=== PATIENT | male | born 1970 | race Caucasian/White ===

== ENCOUNTER 2017-08-05 08:34 | Emergency (ER) | payer MEDICARE, SELFPAY ==
[2017-08-05 08:35] VITALS: BP 150/79; PULSE 100; RESP 18; TEMP 36.3; O2SAT 93; BMI 34.4
--- NOTE | 2017-08-05 08:42 | RAD_ITS ---
STUDY: X-RAY - LEFT HUMERUS REASON FOR EXAM: Male, 46 years old. Pain and bruising following a fall. TECHNIQUE: 4 view(s) of the humerus. COMPARISON: None. FINDINGS: There is an avulsion fracture of the greater tuberosity of the proximal humerus. Nondisplaced transverse fracture through the surgical neck of the humerus with extension to the medial portion as well. There is diffuse soft tissue swelling of the arm. RAD/Humerus min 2 Views IMPRESSION: The multiple fracture of the greater tuberosity of the proximal humerus with a transverse fracture through the surgical neck of the humerus and avulsion of the medial humeral head. Electronically Signed: Delmar Quintana MD at 9:31 EST Tel [phone], Service support ,
--- NOTE | 2017-08-05 08:43 | ED.VISSUMM ---
- ER Visit Summary Date of Service: 08/05/17 Chief Complaint: [Left arm injury] History of Present Illness: The patient is a 46 M [who presents the emergency department after a left arm injury. There was a bread stick in the microwave and it started smoking. He got excited and started to run. He tripped over his own feet and fell on his left shoulder. He has pain and bruising on the inside of his left arm and when he lifts his arm up it hurts. This occurred 4 days ago. He had no other injuries during the fall. He is not on any blood thinners. He has had no previous surgeries or injuries to that arm in the past. No numbness or tingling.] Physical Examination: [] Vitals reviewed Obese Examination of the left upper extremity shows a large amount of ecchymosis on the medial upper arm. There is no focal mass. He is tender in the mid humerus, he has full range of motion at the elbow with no tenderness over the elbow. He has no tenderness over the shoulder or clavicle. He has pain with abduction of the shoulder. There is 2+ radial pulses no sensory deficits Test Results: [] Emergency Department Course and Treatment: [X-rays will be obtained. X-rays show fracture of the greater trochanter the medial humeral head and through the surgical neck. Y view was obtained and shows no dislocation. I spoke with orthopedics who requested a CT scan. CT was unable to be obtained as the patient cannot get in the scanner because of his weight. Axillary views were attempted but were unable to be obtained. They were able to repeat the Y views with better images there does not appear to be a dislocation. This is an injury that occurred 4 days ago. This time he will be placed in a sling and swath and will follow up with orthopedics.] Treatment Plan: [] Disposition: [Discharge] Impression: [Left humerus fracture] This note was generated with [employer] dictation software. It may contain incorrect words, spelling, and punctuation that were not noted in review of the chart prior to signing ED Disposition - Plan for ED Patient: Chief Complaint: Upper Extremity Injury Referrals: Jed Edwards MD [Primary Care Provider] -
--- NOTE | 2017-08-05 08:46 | ED.DCSUM_ITS ---
- ER Visit Summary Date of Service: 08/05/17 Chief Complaint: [Left arm injury] History of Present Illness: The patient is a 46 M [who presents the emergency department after a left arm injury. There was a bread stick in the microwave and it started smoking. He got excited and started to run. He tripped over his own feet and fell on his left shoulder. He has pain and bruising on the inside of his left arm and when he lifts his arm up it hurts. This occurred 4 days ago. He had no other injuries during the fall. He is not on any blood thinners. He has had no previous surgeries or injuries to that arm in the past. No numbness or tingling.] Physical Examination: [] Vitals reviewed Obese Examination of the left upper extremity shows a large amount of ecchymosis on the medial upper arm. There is no focal mass. He is tender in the mid humerus , he has full range of motion at the elbow with no tenderness over the elbow. He has no tenderness over the shoulder or clavicle. He has pain with abduction of the shoulder. There is 2+ radial pulses no sensory deficits Test Results: [] Emergency Department Course and Treatment: [X-rays will be obtained. X-rays show fracture of the greater trochanter the medial humeral head and through the surgical neck. Y view was obtained and shows no dislocation. I spoke with orthopedics who requested a CT scan. CT was unable to be obtained as the patient cannot get in the scanner because of his weight. Axillary views were attempted but were unable to be obtained. They were able to repeat the Y views with better images there does not appear to be a dislocation. This is an injury that occurred 4 days ago. This time he will be placed in a sling and swath and will follow up with orthopedics.] Treatment Plan: [] Disposition: [Discharge] Impression: [Left humerus fracture] This note was generated with [employer] dictation software. It may contain incorrect words, spelling, and punctuation that were not noted in review of the chart prior to signing ED Disposition - Plan for ED Patient: Chief Complaint: Upper Extremity Injury Referrals: Jed Edwards MD [Primary Care Provider] -
--- NOTE | 2017-08-05 10:00 | RAD_ITS ---
STUDY: X-RAY - LEFT SHOULDER REASON FOR EXAM: Male, 46 years old. Pain following a fall. TECHNIQUE: Y view(s) of the shoulder. COMPARISON: None. FINDINGS: Limited study due to the patient's body habitus. There is no evidence of subluxation or dislocation. RAD/Shoulder One View IMPRESSION: No evidence of subluxation or dislocation. Electronically Signed: Delmar Quintana MD at 12:22 EST Tel [phone], Service support ,
--- NOTE | 2017-08-05 13:23 | RAD_ITS ---
STUDY: X-RAY - LEFT SHOULDER REASON FOR EXAM: Male, 46 years old. Proximal humerus fracture following a fall. TECHNIQUE: Y view(s) of the shoulder. COMPARISON: None. FINDINGS: There is no evidence of dislocation. There is evidence of a fracture of the proximal humerus as described on prior examination. RAD/Shoulder One View IMPRESSION: There is no evidence of dislocation. Electronically Signed: Delmar Quintana MD at 14:40 EST Tel [phone], Service support ,
--- NOTE | 2017-08-05 14:29 | ED.DEP ---
ED Disposition - Plan for ED Patient: Chief Complaint: Upper Extremity Injury Instructions: ED Fx Shoulder Referrals: Joao Orantes MD [STAFF PHYSICIAN] - 08/08/17
[2017-08-05 14:54] VITALS: PULSE 111; PULSE 115; RESP 16; O2SAT 94; O2SAT 95
== END 2017-08-05 14:55 | disposition home or self-care (01) ==
LOC: ED 09:18
PROVIDERS: Emergency Provider Emergency Medicine; Family Provider Family Medicine; PCP Family Medicine
DX: S42.252A Displaced fracture of greater tuberosity of left humerus, initial encounter for closed fracture (principal); S42.215A Unspecified nondisplaced fracture of surgical neck of left humerus, initial encounter for closed fracture; W01.0XXA Fall on same level from slipping, tripping and stumbling without subsequent striking against object, initial encounter; Y93.02 Activity, running; Y92.9 Unspecified place or not applicable; Y99.9 Unspecified external cause status; E66.9 Obesity, unspecified
CPT/HCPCS: 73020; 73060; 99284

== ENCOUNTER 2017-12-13 22:58 | Emergency (ER) | payer MEDICARE, SELFPAY ==
[2017-12-13 23:00] VITALS: BP 147/73; PULSE 116; RESP 22; TEMP 37.3; O2SAT 94; BMI 51.6
--- NOTE | 2017-12-13 23:16 | ED.DCSUM_ITS ---
- ER Visit Summary Date of Service: 12/13/17 Chief Complaint: [] Reported delusions History of Present Illness: The patient is a 47 M patient stated there is some women outside of his house I called the nutritional services director on him. He cannot disclose why this happened. It appears he has delusions. Patient denies any history of psychiatric disease. However he has been on psychiatric medication in the past including Risperdal. The police brought him in for further evaluation. He lives alone in his apartment. No suicidal thoughts. No hallucinations. Does not recognize she is having delusions. Physical Examination: [] Vital signs reviewed General: Well-nourished well-developed Head: Normocephalic atraumatic Eyes: Pupils equal round and reactive to light extraocular movements intact ENT: TMs clear no hemotympanum no trauma Neck: Nontender full range of motion Cardiovascular: Regular rate rhythm no murmurs normal S1-S2 Respiratory: No distress clear to auscultation bilaterally chest nontender Abdomen: Soft nontender nondistended normal bowel sounds no masses Back: Nontender no CVA tenderness Extremities: Nontender active range of motion ?4 extremities no trauma Skin: Normal color no trauma Psych: Positive delusions Neuro alert oriented cranial nerves II through XII intact normal strength sensation reflexes Test Results: [] Emergency Department Course and Treatment: [] LabWork obtained. Shows nothing acute. Mental health consult was obtained and the patient will be transferred admitted Treatment Plan: [] Disposition: [] Impression: [] Acute delusional disorder This note was generated with [employer] dictation software. It may contain incorrect words, spelling, and punctuation that were not noted in review of the chart prior to signing ED Disposition - Plan for ED Patient: Chief Complaint: Mental Status Change Referrals: Jed Edwards MD [Primary Care Provider] -
[2017-12-13 23:21] LABS: Absolute Lymphocyte Count 2.82 X10^3/ul (0.83-4.51); Absolute Neutrophil Count 7.8 X10^3/uL (2.0-7.7); Basophil# 0.05 X10^3/uL; Basophil% 0.4 % (0-1); Eosinophil# 0.33 X10^3/uL; Eosinophils% 2.8 % (0-5); Hematocrit 44.6 % (40-54); Hemoglobin 14.9 g/dl (13.0-16.5); Lymphocyte # 2.82 X10^3/ul (4.0); Lymphocyte % 23.6 % (19-41); Mean Corp Hgb Conc 33.4 g/gl (32-36); Mean Corpuscular Hgb 27.1 pg (27.0-32.0); Mean Corpuscular Volume 81.1 fL (80-94); Mean Platelet Vol. 9.4 fl (6.2-12.0); Monocyte# 0.95 X10^3/uL; Monocyte% 7.9 % (0-10); Neutrophil # 7.76 X10^3/uL (2.7-7.7); Neutrophil % 64.9 % (47-70); Platelet Count 274 K/mm3 (150-450); RBC Distribution Width CV 14.3 % (11.6-14.6); RBC Distribution Width SD 42.1 fl (35.1-43.9)
[2017-12-13 23:28] LABS: POSITIVE COUNT NO; POSITIVE DIFFERENTIAL NO; POSITIVE MORPHOLOGY NO
[2017-12-13 23:37] LABS: Anion Gap 11 (5-15); BUN 9 mg/dL (7-18); BUN/Creat Ratio 8.5 RATIO (10-20); Calcium,Total 9.3 mg/dL (8.5-10.1); Chloride 92 mmol/L (98-107); Creatinine, Serum 1.06 mg/dL (0.70-1.30); EST Glomerular Filtration Rate 79 mL/min (>60); Est Glom Filt Rate - Afr Amer 95 mL/min (>60); Estimated Creatinine Clearance 87.04 ml/min; Glucose 431 mg/dL (74-106); Potassium 4.1 mmol/L (3.5-5.1); Sodium Level 130 mmol/L (136-145)
[2017-12-14] VITALS (21 sets, daily range): BP systolic 126–163; BP diastolic 79–99; PULSE 72–97; RESP 14–24; O2SAT 94–100
[2017-12-14 00:08] LABS: Bacteria 0 SEEN /hpf (None Seen); Mucous, Urine 0 SEEN /hpf (<or=2+); Red Blood Cells-Urine 0 SEEN /hpf (0-5); White Blood Cells 0 SEEN /hpf (0-5)
[2017-12-14 00:10] LABS: Color, Urine Yellow (Yellow); Glucose, Dipstick 1000 mg/dl (Normal); Ketone-Dipstick Negative (Negative); Leukocyte Esterase-Dipstick Negative /ul (Negative); Nitrite-Dipstick Negative (Negative); Occult Blood-Urine Negative /ul (Negative); Protein-Dipstick 100 mg/dl (Negative); Urine Bilirubin Dipstick Negative (Negative); Urine Clarity Sl. Cloudy (Clear); Urine Urobilinogen Normal (Normal); Urine pH 6.5 (5.0 - 8.0)
[2017-12-14 00:27] LABS: Squamous Epithelial Cells - UA 0-5 SEEN /hpf (0-5)
[2017-12-14 00:32] LABS: Amphetamine Urine VISTA NEGATIVE (<1000 ng/mL); Barbiturate Urine VISTA NEGATIVE (< 200 ng/mL); Benzodiazepine Urine VISTA NEGATIVE (< 200 ng/mL); Cocaine Urine VISTA NEGATIVE (< 300 ng/mL); Ecstacy Urine VISTA NEGATIVE (< 500 ng/mL); Methadone Urine VISTA NEGATIVE (< 300 ng/mL); PCP Urine VISTA NEGATIVE (< 25 ng/mL); THC Urine VISTA NEGATIVE (< 50 ng/mL); Vista UDS pH Range 6
--- NOTE | 2017-12-14 04:31 | EKG12_ITS ---
Test Reason : Blood Pressure : / mmHG Vent. Rate : 093 BPM Atrial Rate : 093 BPM P-R Int : 162 ms QRS Dur : 106 ms QT Int : 372 ms P-R-T Axes : 069 103 024 degrees QTc Int : 462 ms Normal sinus rhythm Normal ECG Confirmed by CHEMO SWAN MD ([id number]), news editor ANGELA FRYE ([id number]) on 12/18/2017 3:56:36 PM Referred By: Confirmed By:CHEMO SWAN MD
--- NOTE | 2017-12-14 04:50 | RAD_ITS ---
STUDY: X-RAY CHEST REASON FOR EXAM: Male, 47 years old. Altered mental status TECHNIQUE: Single frontal view of the chest. COMPARISON: 09/16/2015 FINDINGS: The lungs are clear and expanded. There is no demonstrated pleural abnormality. Stable cardiac silhouette. Normal mediastinum and kristin. Normal visualized pulmonary arteries. Normal visualized aortic arch and descending thoracic aorta. Normal visualized thoracic spine. Normal visualized ribs, clavicles, and shoulders. There is no demonstrated abnormality of the visualized soft tissue structures of the upper abdomen. RAD/Chest 1 View (Portable) IMPRESSION: No acute pulmonary findings. Electronically Signed: Jed Mazariegos MD at 6:07 EDT Tel , Service support ,
[2017-12-14] MEDS: Glimepiride 4 MG Tablet PO (07:20)
[2017-12-14] MEDS: metFORMIN HCl 1,000 MG Tablet 1000 MG PO ×2 (07:20→19:16)
[2017-12-14 07:25] LABS: Bedside Glucose 407 mg/dL (70-110)
--- NOTE | 2017-12-14 07:46 | ED.RN ---
per elfego kraus
--- NOTE | 2017-12-14 07:48 | ED.RN ---
PER AKTARZYNA WITH CRISIS; SENT ALL INFORMATION IT [facility]; WAITING ON A RESPONSE; JULIETH WILL BE IN
--- NOTE | 2017-12-14 09:07 | ED.RN ---
PT STATES I WANT TO GO HOME. WHEN PT INFORMED HE IS WAITING TO SPEAK WITH THE [facility] PT STATES NO I'M NOT. I TALKED TO HER LAST NIGHT. I'M LEAVING HERE. I WILL GIVE YOU YOUR WALKING PAPERS. 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
--- NOTE | 2017-12-14 09:55 | ED.RN ---
CALLED [facility] FOR AN UPDATE
--- NOTE | 2017-12-14 10:01 | ED.RN ---
PT DENIED BY [facility]
--- NOTE | 2017-12-14 11:07 | ED.RN ---
PER JULIETH WITH CRISIS; PT HAS BEEN REFERRED TO [facility]
[2017-12-14 15:43] LABS: ALB/GLOB Ratio 0.8 RATIO (0.9-2.4); AST(SGOT) 32 U/L (15-37); Alanine Aminotransfer ALT/SGPT 62 U/L (16-61); Albumin, Serum 3.4 g/dL (3.2-5.0); Alkaline Phosphatase 109 U/L (45-117); Anion Gap 7 (5-15); BUN 11 mg/dL (7-18); BUN/Creat Ratio 10.8 RATIO (10-20); Calcium,Total 9.2 mg/dL (8.5-10.1); Chloride 95 mmol/L (98-107); Creatinine, Serum 1.02 mg/dL (0.70-1.30); EST Glomerular Filtration Rate 82 mL/min (>60); Est Glom Filt Rate - Afr Amer 100 mL/min (>60); Estimated Creatinine Clearance 90.45 ml/min; Globulin 4.5 g/dL (2.2-4.2); Glucose 339 mg/dL (74-106); Protein, Total 7.9 g/dL (6.4-8.2); Sodium Level 131 mmol/L (136-145)
--- NOTE | 2017-12-14 21:58 | NURSING ---
PATIENT'S BLOOD SUGAR IS 389. HE HAD HIS GLUCOPHAGE ALREADY AND HE ALSO HAD SOME COOKIES.
[2017-12-14 22:01] LABS: Bedside Glucose 389 mg/dL (70-110)
[2017-12-15] VITALS (14 sets, daily range): BP systolic 124–159; BP diastolic 71–101; PULSE 87–108; RESP 14–22; O2SAT 94–99
--- NOTE | 2017-12-15 06:12 | NURSING ---
BREAKFAST ORDERED FOR PATIENT.
[2017-12-15 07:00] LABS: Bedside Glucose 367 mg/dL (70-110)
[2017-12-15] MEDS: Glimepiride 4 MG Tablet PO (08:24)
[2017-12-15] MEDS: metFORMIN HCl 1,000 MG Tablet 1000 MG PO ×2 (08:24→19:26)
--- NOTE | 2017-12-15 11:50 | ED.RN ---
PER ROSI WITH CRISIS; WE ARE STILL WAITING TO HEAR BACK FROM [facility] FOR ACCEPTANCE
[2017-12-15 12:15] LABS: Bedside Glucose 349 mg/dL (70-110)
--- NOTE | 2017-12-15 15:32 | ED.RN ---
DINNER ORDERED FOR PT.
--- NOTE | 2017-12-15 18:51 | ED.DEP ---
ED Disposition - Plan for ED Patient: Disposition: Home or Assisted Living Chief Complaint: Mental Status Change Instructions: Understanding Delusional Disorders Referrals: Jed Edwards MD [Primary Care Provider] - [facility] [GROUP OF PHYSICIANS] -
== END 2017-12-15 19:32 | disposition home or self-care (01) ==
PROVIDERS: Emergency Medicine; Emergency Provider Emergency Medicine; Family Provider Family Medicine; PCP Family Medicine
DX: F22 Delusional disorders (principal); F29 Unspecified psychosis not due to a substance or known physiological condition; E11.9 Type 2 diabetes mellitus without complications; E66.9 Obesity, unspecified; Z79.84 Long term (current) use of oral hypoglycemic drugs
CPT/HCPCS: 36415; 71045; 80048; 80053; 80307; 80320; 81001; 82962; 85025; 93005; 99284; G0480

== ENCOUNTER 2018-02-21 12:16 | Emergency (ER) | payer MEDICARE, SELFPAY ==
[2018-02-21 12:17] VITALS: BP 180/97; PULSE 105; RESP 20; TEMP 36.4; O2SAT 97; BMI 31.6
--- NOTE | 2018-02-21 12:58 | ED.VISSUMM ---
- ER Visit Summary Date of Service: 02/21/18 Chief Complaint: Exacerbation of schizophrenia and medical noncompliance History of Present Illness: The patient is a 47 M history of schizophrenia and diabetes. He is noncompliant with both schizophrenic and his other medications. Patient has a welfare case worker is here in the ER with him. His home. He states that she was trespassing and called the street police on her. She reported is brought into the ER to be evaluated. They are trending of the gentleman placed he needed a history and physical done before that. Patient himself denies any medical problems to me. And keeps telling me he is fine. Patient is [facility] me [facility] no [facility] believing him. He believes his almond blancher operator comes to his residence to harm him and others. He denies being suicidal or homicidal. He also denies any psychiatric history. Physical Examination: Well-appearing middle-age male. Vital signs are stable and afebrile. He does not look septic or toxic. He is in no distress. He is sitting in a chair comfortably. HEENT exam atraumatic. Pupils round reactive light. He has pressured speech but it is not slurred. He has no dysarthria. No facial droop. Neck nontender. No lymphadenopathy. Lungs clear to auscultation bilaterally. Heart regular rhythm no murmur rate about 100. Abdomen is morbidly obese but soft and nontender no peritoneal signs. He is moving all 4 extremities. They are neurovascularly intact. There are no wounds. They are nontender with normal range of motion. Back is nontender. Neurologically is awake and alert moving all 4 extremities without any motor deficits. Patient has pressured speech. And flight of ideas. Currently he is not combative or aggressive. He is not acting violent at this time. Test Results: ED mental health evaluation. Normal. White count of 10. Normal hemoglobin. Electrolytes show a mild hyponatremia with a sodium of 129. Normal creatinine and gap. Tox screen negative. Alcohol level normal. Emergency Department Course and Treatment: Patient had been noncompliant with his meds he has acute exacerbation of his underlying schizophrenia. He will undergo a crisis evaluation. Treatment Plan: Repeat exam patient is doing well at 1441. Awaiting crisis evaluation. Disposition: Transfer Impression: Acute exacerbation of schizophrenia Medical noncompliance History of diabetes This note was generated with [employer] dictation software. It may contain incorrect words, spelling, and punctuation that were not noted in review of the chart prior to signing ED Disposition - Plan for ED Patient: Chief Complaint: Mental Health Referrals: Jed Edwards MD [Primary Care Provider] -
--- NOTE | 2018-02-21 13:03 | ED.DCSUM_ITS ---
- ER Visit Summary Date of Service: 02/21/18 Chief Complaint: Exacerbation of schizophrenia and medical noncompliance History of Present Illness: The patient is a 47 M history of schizophrenia and diabetes. He is noncompliant with both schizophrenic and his other medications. Patient has a case assistant is here in the ER with him. His home. He states that she was trespassing and called the street police on her. She reported is brought into the ER to be evaluated. They are trending of the gentleman placed he needed a history and physical done before that. Patient himself denies any medical problems to me. And keeps telling me he is fine. Patient is telling me that [facility] no [facility] is believing [facility]. He believes his principal cloud architect comes to his residence to harm him and others. He denies being suicidal or homicidal. He also denies any psychiatric history. Physical Examination: Well-appearing middle-age male. Vital signs are stable and afebrile. He does not look septic or toxic. He is in no distress. He is sitting in a chair comfortably. HEENT exam atraumatic. Pupils round reactive light. He has pressured speech but it is not slurred. He has no dysarthria. No facial droop. Neck nontender. No lymphadenopathy. Lungs clear to auscultation bilaterally. Heart regular rhythm no murmur rate about 100. Abdomen is morbidly obese but soft and nontender no peritoneal signs. He is moving all 4 extremities. They are neurovascularly intact. There are no wounds. They are nontender with normal range of motion. Back is nontender. Neurologically is awake and alert moving all 4 extremities without any motor deficits. Patient has pressured speech. And flight of ideas. Currently he is not combative or aggressive. He is not acting violent at this time. Test Results: ED mental health evaluation. Normal. White count of 10. Normal hemoglobin. Electrolytes show a mild hyponatremia with a sodium of 129. Normal creatinine and gap. Tox screen negative. Alcohol level normal. Emergency Department Course and Treatment: Patient had been noncompliant with his meds he has acute exacerbation of his underlying schizophrenia. He will undergo a crisis evaluation. Treatment Plan: Repeat exam patient is doing well at 1441. Awaiting crisis evaluation. Disposition: Transfer Impression: Acute exacerbation of schizophrenia Medical noncompliance History of diabetes This note was generated with [employer] dictation software. It may contain incorrect words, spelling, and punctuation that were not noted in review of the chart prior to signing ED Disposition - Plan for ED Patient: Chief Complaint: Mental Health Referrals: Jed Edwards MD [Primary Care Provider] -
[2018-02-21 13:09] LABS: Absolute Lymphocyte Count 1.72 X10^3/ul (0.83-4.51); Absolute Neutrophil Count 7.3 X10^3/uL (2.0-7.7); Basophil# 0.05 X10^3/uL; Basophil% 0.5 % (0-1); Eosinophil# 0.25 X10^3/uL; Eosinophils% 2.5 % (0-5); Hematocrit 47.3 % (40-54); Hemoglobin 16.2 g/dl (13.0-16.5); Lymphocyte # 1.72 X10^3/ul (4.0); Lymphocyte % 17.1 % (19-41); Mean Corp Hgb Conc 34.2 g/gl (32-36); Mean Corpuscular Hgb 27.8 pg (27.0-32.0); Mean Corpuscular Volume 81.1 fL (80-94); Mean Platelet Vol. 9.3 fl (6.2-12.0); Monocyte# 0.74 X10^3/uL; Monocyte% 7.4 % (0-10); Neutrophil # 7.25 X10^3/uL (2.7-7.7); Platelet Count 277 K/mm3 (150-450); RBC Distribution Width CV 13.9 % (11.6-14.6); RBC Distribution Width SD 40.7 fl (35.1-43.9); Red Blood Count 5.83 M/mm3 (4.6-6.2); White Blood Count 10.1 K/mm3 (4.4-11.0)
[2018-02-21 13:11] LABS: POSITIVE COUNT NO; POSITIVE DIFFERENTIAL NO; POSITIVE MORPHOLOGY NO
[2018-02-21 13:22] VITALS: PULSE 99; RESP 14; O2SAT 99
[2018-02-21 13:23] LABS: Anion Gap 8 (5-15); BUN 9 mg/dL (7-18); BUN/Creat Ratio 9.8 RATIO (10-20); Calcium,Total 8.5 mg/dL (8.5-10.1); Chloride 94 mmol/L (98-107); Creatinine, Serum 0.92 mg/dL (0.70-1.30); EST Glomerular Filtration Rate 93 mL/min (>60); Est Glom Filt Rate - Afr Amer 112 mL/min (>60); Estimated Creatinine Clearance 109.77 ml/min; Glucose 320 mg/dL (74-106); Potassium 4.2 mmol/L (3.5-5.1); Sodium Level 129 mmol/L (136-145)
--- NOTE | 2018-02-21 13:23 | NURSING ---
CALLING [facility], SHE WILL HAVE ROSI CALL ME
[2018-02-21 13:43] LABS: Amphetamine Urine VISTA NEGATIVE (<1000 ng/mL); Barbiturate Urine VISTA NEGATIVE (< 200 ng/mL); Benzodiazepine Urine VISTA NEGATIVE (< 200 ng/mL); Cocaine Urine VISTA NEGATIVE (< 300 ng/mL); Ecstacy Urine VISTA NEGATIVE (< 500 ng/mL); Methadone Urine VISTA NEGATIVE (< 300 ng/mL); PCP Urine VISTA NEGATIVE (< 25 ng/mL); THC Urine VISTA NEGATIVE (< 50 ng/mL); Vista UDS pH Range 7
--- NOTE | 2018-02-21 14:04 | NURSING ---
ROSI , CRISIS, CALLED BACK. HE IS OVERWHELMED, BUT TOOK INFO. MIGHT BE KATARZYNA WHEN SHE COMES IN
--- NOTE | 2018-02-21 15:30 | NURSING ---
ROSI, CRISIS, HERE FOR PATIENT
[2018-02-21 15:42] VITALS: BP 160/87; PULSE 95; RESP 14; O2SAT 96
[2018-02-21] MEDS: Insulin Lispro 100 UNIT/ML INSULN.PEN 10 UNIT SC (15:42)
[2018-02-21 17:06] VITALS: PULSE 94; RESP 16; O2SAT 94
--- NOTE | 2018-02-21 17:09 | ED.RN ---
Updated guardian, Chiquis, , pt would be d/c to home with plan of admitting to [facility] on Saturday. I was not given details of this plan from crisis prior to them leaving the facility.
--- NOTE | 2018-02-21 17:14 | ED.DCSUM_ITS ---
- ER Visit Summary Date of Service: 02/21/18 Chief Complaint: [] History of Present Illness: The patient is a 47 M [] Physical Examination: [] Test Results: [] Emergency Department Course and Treatment: [] Treatment Plan: [] Disposition: [] Impression: [] This note was generated with [employer] dictation software. It may contain incorrect words, spelling, and punctuation that were not noted in review of the chart prior to signing ED Disposition - Plan for ED Patient: Chief Complaint: Mental Health Instructions: ED Schizophrenia General Referrals: Jed Edwards MD [Primary Care Provider] -
== END 2018-02-21 17:26 | disposition home or self-care (01) ==
PROVIDERS: Emergency Provider Emergency Medicine; Family Provider Family Medicine; PCP Family Medicine
DX: F23 Brief psychotic disorder (principal); E11.65 Type 2 diabetes mellitus with hyperglycemia; E87.1 Hypo-osmolality and hyponatremia; Z91.19 Patient's noncompliance with other medical treatment and regimen; Z79.84 Long term (current) use of oral hypoglycemic drugs
CPT/HCPCS: 36415; 80048; 80307; 80320; 85025; 99282; G0480

== ENCOUNTER 2018-04-19 09:16 | Emergency (ER) | payer MEDICARE, SELFPAY ==
[2018-04-19] VITALS (14 sets, daily range): BP systolic 139–210; BP diastolic 76–144; PULSE 82–110; RESP 14–28; TEMP 36.2; O2SAT 92–100; BMI 45.8
--- NOTE | 2018-04-19 09:30 | CT_ITS ---
STUDY: CT BRAIN WITHOUT CONTRAST REASON FOR EXAM: Male, 47 years old. Altered mental status. RADIATION DOSAGE (If Supplied By Facility): CTDIvol = ( 44.99 ) mGy, DLP = ( 829.85 ) mGycm TECHNIQUE: Transaxial CT imaging of the brain was performed without administration of intravenous contrast material. # of Images: 274 Individualized dose optimization techniques were used for this CT. COMPARISON: None. FINDINGS: Normal soft tissue structures. Normal calvarium. There is mild cerebral atrophy with widening of the extra-axial spaces and ventricular dilatation. Normal white matter tracts of the cerebral hemispheres. Normal basal ganglia and thalami. Normal brainstem. Normal cerebellum. There is no intracranial hemorrhage. There are no findings of an acute ischemic infarction. Normal visualized paranasal sinuses. CT/Brain/Head without Contrast IMPRESSION: No acute intracranial process. Electronically Signed: Chance August MD at 10:40 EDT Tel , Service support ,
--- NOTE | 2018-04-19 09:30 | EKG12_ITS ---
Test Reason : HYPERTENSION Blood Pressure : / mmHG Vent. Rate : 090 BPM Atrial Rate : 090 BPM P-R Int : 160 ms QRS Dur : 104 ms QT Int : 360 ms P-R-T Axes : 057 096 022 degrees QTc Int : 440 ms Normal sinus rhythm Possible Left atrial enlargement Rightward axis Incomplete right bundle branch block Borderline ECG Confirmed by EHSAN ALMANAZ, NAGI ([id number]), senior technical editor ARNIE ARIAS ([id number]) on 04/22/2018 11:23:54 AM Referred By: NICOLAS Confirmed By:NAGI MOSER MD
--- NOTE | 2018-04-19 09:38 | ED.VISSUMM ---
- ER Visit Summary Date of Service: 04/19/18 Chief Complaint: Threatening remarks and abnormal behavior History of Present Illness: The patient is a 47 M who lives at a residential complex and was voicing to residents that he works for the [employer] and he would harm them. He believes the and the posterior police specialist are relatives. is his brother and the officer is his father. He informed me that he has no medical problems and is on no medication. When informed that prior records indicates that he has problems he is in denial. He states he works for [employer] and has access to a special pill. The pill removes toxins from his body. He denies every review of systems question asked. He is very redirectable. He is pleasant. He agrees to allow the nurses to perform the job and draw blood. He agreed to remain still so that a CAT scan to be obtained. Physical Examination: Patient is pleasant with slight pressured speech and delusions. He does complain of dry mouth and thirst. He states he has not eaten much the last couple of days. He is alert. He is oriented to person place and year. Head is atraumatic normocephalic. Pupils are equal round reactive. Extraocular muscles are intact. TMs are pearly white with landmarks noted. Nares patent with no drainage. Posterior pharynx without erythema or exudate. Uvula is midline. There is no dysphonia or dysphasia. Trachea is midline. There is no stridor with auscultation of the neck. Neck is supple. Because of myosis difficult to see fundi. Heart is regular without murmur, gallop or rub. S1 and S2 are normal. Lungs are clear to auscultation with good movement of air bilaterally. Abdomen is prominent soft nontender with normal bowel sounds. There is slight pitting edema of both lower legs and feet. Motor is 5/5. Sensation is intact. DTRs symmetric with no clonus or Babinski sign. Cranial 2 through 12 are intact. Cerebellar testing with finger-nose to finger was performed adequately. Test Results: CT of the head per my review and radiology interpretation revealed no acute process i.e. subarachnoid hemorrhage, intracranial bleed, CVA and there is no evidence of epidural or subdural hematoma. Final interpretation by radiologist no acute intracranial process. EKG revealed a sinus rhythm rate of 90 with evidence of incomplete right bundle branch block and left atrial enlargement. ND interval is 160 ms and QRS duration is slightly prolonged. [place] is to the right. CBC is unremarkable. Basic metabolic panel is remarkable for pseudohyponatremia secondary to glucose of 389. Tox and alcohol are negative. Urine was positive for glucose only. Emergency Department Course and Treatment: Initial blood pressure is markedly elevated at 210/144. Repeat blood pressure is 198/96. Since this may represent hepatic encephalopathy a CT of the head was obtained to rule out intracranial bleed. Basic metabolic panel was obtained to evaluate for endorgan injury as well as CBC. UA was ordered as well as tox screen and alcohol level since he will require medical clearance for psychiatric care once he is medically stabilized. A pink slip was completed by the [employer]'s department. I am in agreement patient does not have the capacity to make a sound decision and is delusional and will require psychiatric care once medically cleared and stabilized. Treatment Plan: Patient received 1 L of normal saline wide open and subcu insulin for his hyperglycemia. Akila from the counseling center was notified and will evaluate patient for psychiatric admission Disposition: Transfer to psychiatric facility since patient is medically clear and stable. Most recent blood pressure was 139/78. Since he is asymptomatic no treatment is indicated per the literature Impression: 1. Delusional and exacerbation of schizophrenia 2. Hyperglycemia secondary to medication noncompliance 3. Transient hypertension uncertain etiology This note was generated with [employer] dictation software. It may contain incorrect words, spelling, and punctuation that were not noted in review of the chart prior to signing ED Disposition - Plan for ED Patient: Chief Complaint: Mental Health Referrals: Jed Edwards MD [Primary Care Provider] -
--- NOTE | 2018-04-19 09:43 | ED.DCSUM_ITS ---
- ER Visit Summary Date of Service: 04/19/18 Chief Complaint: Threatening remarks and abnormal behavior History of Present Illness: The patient is a 47 M who lives at a residential complex and was voicing to residents that he works for the [employer] and he would harm them. He believes the and the posterior police sergeant precinct are relatives. is his brother and the officer is his father. He informed me that he has no medical problems and is on no medication. When informed that prior records indicates that he has problems he is in denial. He states he works for [employer] and has access to a special pill. The pill removes toxins from his body. He denies every review of systems question asked. He is very redirectable. He is pleasant. He agrees to allow the nurses to perform the job and draw blood. He agreed to remain still so that a CAT scan to be obtained. Physical Examination: Patient is pleasant with slight pressured speech and delusions. He does complain of dry mouth and thirst. He states he has not eaten much the last couple of days. He is alert. He is oriented to person place and year. Head is atraumatic normocephalic. Pupils are equal round reactive. Extraocular muscles are intact. TMs are pearly white with landmarks noted. Nares patent with no drainage. Posterior pharynx without erythema or exudate. Uvula is midline. There is no dysphonia or dysphasia. Trachea is midline. There is no stridor with auscultation of the neck. Neck is supple. Because of myosis difficult to see fundi. Heart is regular without murmur, gallop or rub. S1 and S2 are normal. Lungs are clear to auscultation with good movement of air bilaterally. Abdomen is prominent soft nontender with normal bowel sounds. There is slight pitting edema of both lower legs and feet. Motor is 5/5. Sensation is intact. DTRs symmetric with no clonus or Babinski sign. Cranial 2 through 12 are intact. Cerebellar testing with finger-nose to finger was performed adequately. Test Results: CT of the head per my review and radiology interpretation revealed no acute process i.e. subarachnoid hemorrhage, intracranial bleed, CVA and there is no evidence of epidural or subdural hematoma. Final interpretation by radiologist no acute intracranial process. EKG revealed a sinus rhythm rate of 90 with evidence of incomplete right bundle branch block and left atrial enlargement. NE interval is 160 ms and QRS duration is slightly prolonged. [place] is to the right. CBC is unremarkable. Basic metabolic panel is remarkable for pseudohyponatremia secondary to glucose of 389. Tox and alcohol are negative. Urine was positive for glucose only. Emergency Department Course and Treatment: Initial blood pressure is markedly elevated at 210/144. Repeat blood pressure is 198/96. Since this may represent hepatic encephalopathy a CT of the head was obtained to rule out intracranial bleed. Basic metabolic panel was obtained to evaluate for endorgan injury as well as CBC. UA was ordered as well as tox screen and alcohol level since he will require medical clearance for psychiatric care once he is medically stabilized. A pink slip was completed by the [employer]'s department. I am in agreement patient does not have the capacity to make a sound decision and is delusional and will require psychiatric care once medically cleared and stabilized. Treatment Plan: Patient received 1 L of normal saline wide open and subcu insulin for his hyperglycemia. Akila from the counseling center was notified and will evaluate patient for psychiatric admission Disposition: Transfer to psychiatric facility since patient is medically clear and stable. Most recent blood pressure was 139/78. Since he is asymptomatic no treatment is indicated per the literature Impression: 1. Delusional and exacerbation of schizophrenia 2. Hyperglycemia secondary to medication noncompliance 3. Transient hypertension uncertain etiology This note was generated with [employer] dictation software. It may contain incorrect words, spelling, and punctuation that were not noted in review of the chart prior to signing ED Disposition - Plan for ED Patient: Chief Complaint: Mental Health Referrals: Jed Edwards MD [Primary Care Provider] -
[2018-04-19 10:07] LABS: Absolute Lymphocyte Count 1.73 X10^3/ul (0.83-4.51); Absolute Neutrophil Count 7.7 X10^3/uL (2.0-7.7); Basophil# 0.05 X10^3/uL; Basophil% 0.5 % (0-1); Eosinophil# 0.28 X10^3/uL; Eosinophils% 2.6 % (0-5); Hematocrit 48.8 % (40-54); Hemoglobin 16.3 g/dl (13.0-16.5); Lymphocyte # 1.73 X10^3/ul (4.0); Lymphocyte % 16.4 % (19-41); Mean Corp Hgb Conc 33.4 g/gl (32-36); Mean Corpuscular Hgb 27.9 pg (27.0-32.0); Mean Corpuscular Volume 83.4 fL (80-94); Mean Platelet Vol. 9.5 fl (6.2-12.0); Monocyte# 0.82 X10^3/uL; Monocyte% 7.8 % (0-10); Neutrophil # 7.67 X10^3/uL (2.7-7.7); Neutrophil % 72.4 % (47-70); Platelet Count 234 K/mm3 (150-450); RBC Distribution Width CV 13.3 % (11.6-14.6); RBC Distribution Width SD 39.9 fl (35.1-43.9); Red Blood Count 5.85 M/mm3 (4.6-6.2); White Blood Count 10.6 K/mm3 (4.4-11.0)
[2018-04-19 10:08] LABS: POSITIVE COUNT NO; POSITIVE DIFFERENTIAL NO; POSITIVE MORPHOLOGY NO
[2018-04-19 10:27] LABS: Anion Gap 8 (5-15); BUN 13 mg/dL (7-18); BUN/Creat Ratio 13.3 RATIO (10-20); Calcium,Total 8.8 mg/dL (8.5-10.1); Chloride 93 mmol/L (98-107); Creatinine, Serum 0.98 mg/dL (0.70-1.30); EST Glomerular Filtration Rate 86 mL/min (>60); Est Glom Filt Rate - Afr Amer 105 mL/min (>60); Estimated Creatinine Clearance 103.05 ml/min; Glucose 389 mg/dL (74-106); Potassium 4.2 mmol/L (3.5-5.1); Sodium Level 132 mmol/L (136-145); Thyroid Stim Hormone (TSH) 1.92 uIU/mL (0.358-3.74)
[2018-04-19] MEDS: Insulin Lispro 100 UNIT/ML INSULN.PEN SC (11:14)
[2018-04-19] MEDS: 0.9% Normal Saline 1,000 ML 1000 ML IV (11:15)
[2018-04-19 11:20] LABS: Bacteria 0 SEEN /hpf (None Seen); Mucous, Urine 0 SEEN /hpf (<or=2+); Red Blood Cells-Urine 0 SEEN /hpf (0-5); Squamous Epithelial Cells - UA 0 SEEN /hpf (0-5); White Blood Cells 0 SEEN /hpf (0-5)
[2018-04-19 11:29] LABS: Color, Urine Yellow (Yellow); Glucose, Dipstick 1000 mg/dl (Normal); Ketone-Dipstick 5 mg/dl (Negative); Leukocyte Esterase-Dipstick Negative /ul (Negative); Nitrite-Dipstick Negative (Negative); Occult Blood-Urine Negative /ul (Negative); Protein-Dipstick 30 mg/dl (Negative); Specific Gravity, Urine 1.015 (1.002-1.030); Urine Bilirubin Dipstick Negative (Negative); Urine Clarity Clear (Clear); Urine Urobilinogen Normal (Normal); Urine pH 6.5 (5.0 - 8.0)
[2018-04-19 11:58] LABS: Amphetamine Urine VISTA NEGATIVE (<1000 ng/mL); Barbiturate Urine VISTA NEGATIVE (< 200 ng/mL); Benzodiazepine Urine VISTA NEGATIVE (< 200 ng/mL); Cocaine Urine VISTA NEGATIVE (< 300 ng/mL); Ecstacy Urine VISTA NEGATIVE (< 500 ng/mL); Methadone Urine VISTA NEGATIVE (< 300 ng/mL); PCP Urine VISTA NEGATIVE (< 25 ng/mL); THC Urine VISTA NEGATIVE (< 50 ng/mL); Vista UDS pH Range 6
--- NOTE | 2018-04-19 19:39 | NURSING ---
ACCEPTED TO [facility] BY DR. NICOLAS UNIT 1400 REPORT
[2018-04-19 20:36] LABS: Bedside Glucose 422 mg/dL (70-110)
--- NOTE | 2018-04-19 21:15 | ED.RN ---
PT REFUSES TO TAKE HUMALOG, STATES I'M NOT TAKING THAT POISON, I OWN 20 MILLION STOCK IN THIS HOSPITAL, I TELL YOU WHAT TO DO. PT ALSO STATES HE WILL PUT STAFF IN ELECTRIC CHAIR IF ADVISED TO TAKE MEDICINE AGAIN. PT CONTINUES WITH GRANDIOSE THOUGHT, RAMBLING SPEECH. AWARE.
--- NOTE | 2018-04-19 21:46 | NURSING ---
CALLED [facility] AT 2111 ABOUT TRANSPORT AND WAS INFORMED NO TRANSPORT AVAILABLE TONIGHT AND TO CALL AGAIN IN THE MORNING
--- NOTE | 2018-04-20 00:44 | NURSING ---
[facility] AND [facility] ARE UNABLE TO TAKE PATIENT TILL MORNING
[2018-04-20 04:42] VITALS: BP 151/102; PULSE 95; RESP 15; O2SAT 92
[2018-04-20 07:00] VITALS: BP 159/99; PULSE 86; RESP 15; TEMP 36.4; O2SAT 92
[2018-04-20 07:25] VITALS: BP 159/99; PULSE 86; RESP 15; TEMP 36.4; O2SAT 100
[2018-04-20] MEDS: Ziprasidone IM 20 MG/ML VIAL IM (09:00)
[2018-04-20 09:01] VITALS: RESP 18
--- NOTE | 2018-04-20 09:16 | ED.RN ---
TRANSPORT ARRIVED TO TAKE PT TO [place]. PT REFUSING TRANSPORT. REPEATEDLY STATING THAT HE NEEDS TO GET BACK TO WORK AT THE [employer] AND THAT I OWN THIS HOSPITAL. YOU ARE NOW FIRED AND I AM NOT GOING ANYWHERE. [employer] CALLED FOR REINFORCEMENT AND SAFETY TO GIVEN [place] IM ORDERED BY DR FALCON FOR INCREASE IN AGITATION.
--- NOTE | 2018-04-20 09:46 | ED.RN ---
PT CONTINUE TO REFUSE TRANSPORT TO [facility]. RAISING VOICE, FORCEFULLY STATING I'M NOT GOING. [facility] NOTIFIED FOR ASSISTANCE FROM OFFICERS.
[2018-04-20 10:09] VITALS: RESP 16
[2018-04-20] MEDS: DiphenhydrAMINE 50 MG/ML Syringe IM (10:09)
[2018-04-20] MEDS: LORazepam 2 MG/ML Syringe IM (10:09)
[2018-04-20] MEDS: Haloperidol Lactate 5 MG/ML Vial IM (10:09)
--- NOTE | 2018-04-20 10:22 | ED.RN ---
PT REFUSED TO GET ON COT. PD CALLED. MORE IM MEDS GIVEN. PT FINALLY GOT ON COT.
== END 2018-04-20 10:23 ==
PROVIDERS: Emergency Provider Emergency Medicine; Family Provider Family Medicine; PCP Family Medicine
DX: F20.9 Schizophrenia, unspecified (principal); E11.65 Type 2 diabetes mellitus with hyperglycemia; Z91.14 Patient's other noncompliance with medication regimen; R03.0 Elevated blood-pressure reading, without diagnosis of hypertension; H57.03 Miosis; I45.10 Unspecified right bundle-branch block; E66.9 Obesity, unspecified; Z79.84 Long term (current) use of oral hypoglycemic drugs
CPT/HCPCS: 70450; 80048; 80307; 80320; 81001; 82962; 84443; 85025; 93005; 96360; 96372; 99284; J7030; A4216; G0480; J3486